=== PATIENT | female | born 1965 | race Caucasian/White ===

== ENCOUNTER 2018-05-08 13:46 | Emergency (ER) | payer OTHER, SELFPAY ==
[2018-05-08] MEDS ORDERED: Adacel (T-DAP) 0.5 ML SYRINGE ONE (14:10)
== END 2018-05-08 14:30 | disposition home or self-care (01) ==
LOC: SCSER 13:46
DX: L03.113 Cellulitis of right upper limb (principal); F17.210 Nicotine dependence, cigarettes, uncomplicated
CPT/HCPCS: 90471; 90715